=== PATIENT | male | born 1995 | race Asian ===

== ENCOUNTER 2019-02-23 10:18 | Emergency (ER) | payer OTHER ==
[2019-02-23] MEDS ORDERED: NS 0.9% 1000 ML** 1,000 ML IV ONE (10:27)
--- NOTE | 2019-02-23 10:39 | ED ---
Back Pain - HPI Summary HPI Summary: Pt is a 23 y/o M presenting to the ED with a chief complaint of right flank pain sudden onset around 0930 today while working on his laptop. The pain is described as sharp and constant for about 30-40 minutes, and it subsided when he got into the ambulance, currently rated at a 2-3/10. pt was given Toradol by EMS, 30mg. It slightly radiates to his RLQ and there was some pain in his testicles. Pt denies trauma , hematuria. No abx surgery hx. He had a scan last year that revealed a small kidney stone, and thinks that his father may have had kidney stones. He denies nausea as well as any medical hx. Medications reviewed this visit - History of Current Complaint Chief Complaint: EDFlankPain Stated Complaint: ABD PAIN PER EMS Time Seen by Provider: 02/23/19 10:24 Hx Obtained From: Patient Onset/Duration: Sudden Onset, Lasting Minutes - 30-40min, Still Present Onset/Duration: Started Hours Ago, Resolved Timing: Constant, Lasting Minutes Back Pain Location: Is Diffuse - R flank Severity Initially: Severe Severity Currently: Moderate Pain Intensity: 4 Pain Scale Used: 0-10 Numeric Character: Sharp Aggravating Symptom(s): Nothing Alleviating Symptom(s): Position Associated Signs And Symptoms: Positive: Abdominal Pain, Flank Pain, Other - testicular pain - Allergies/Home Medications Allergies/Adverse Reactions: Allergies Allergy/AdvReac Type Severity Reaction Status Date / Time Penicillins Allergy Rash Verified 02/23/19 10:25 PMH/Surg Hx/FS Hx/Imm Hx Previously Healthy: Yes Endocrine/Hematology History: Denies: Hx Diabetes Cardiovascular History: Denies: Hx Hypertension Infectious Disease History: No Infectious Disease History: Denies: Traveled Outside the [place] in Last 30 Days - Family History Known Family History: Positive: Other - father kidney stones - Social History Occupation: Student Lives: Dormitory/Roommates Alcohol Use: Occasionally Hx Substance Use: No Substance Use Type: Reports: None Hx Tobacco Use: No Smoking Status (MU): Never Smoked Tobacco Review of Systems Constitutional: Negative Eyes: Negative Positive: Abdominal Pain, Other - right flank. Negative: Nausea Positive: other - pain in testicles with back pain - resolved Positive: Myalgia - flank pain Skin: Negative All Other Systems Reviewed And Are Negative: Yes Physical Exam - Summary Physical Exam Summary: Vital Signs Reviewed: Yes A+Ox3, no distress Eyes: Conjunctiva Clear, ЕЛЕНА. EOM intact and full ENT: Hearing grossly normal TM x 2 clear, mmoist, uvula midline, no exudate, no erythema Neck: Positive: Supple Respiratory: Positive: No respiratory distress, No accessory muscle use + CTA throughout no w/r Cardiovascular: RRR nl s1, s2 no m/r CBT <2 sec abd soft + BS nt/nd no guarding, no distension, no cva Musculoskeletal Exam: WEAVER x 4 without difficulty Strength Intact, ROM Intact Neurological: Positive: Alert, + sensation throughout Psychological: Positive: Normal Response To Family Skin: Positive: no rash, no ecchymosis Triage Information Reviewed: Yes Vital Signs On Initial Exam: Initial Vitals Temp Pulse Resp BP Pulse Ox 97.8 F 89 18 117/71 99 02/23/19 10:24 02/23/19 10:24 02/23/19 10:24 02/23/19 10:24 02/23/19 10:24 Vital Signs Reviewed: Yes Diagnostics - Vital Signs Vital Signs Temp Pulse Resp BP Pulse Ox 02/23/19 10:24 97.8 F 89 18 117/71 99 - Laboratory Result Diagrams: 02/23/19 10:45 02/23/19 10:45 Lab Statement: Any lab studies that have been ordered have been reviewed, and results considered in the medical decision making process. - CT CT abd/pelv CT Interpretation Completed By: Radiologist Summary of CT Findings: Minimal RIGHT hydronephrosis is traced to a 0.3cm stone at the ureterovesicular junction. ED provider has reviewed this report. Re-Evaluation - Re-Evaluation 1st re-eval Re-Evaluation Time: 12:00 Change: Unchanged Comment: I discussed the results of the CT abd/pelv with the patient. Will discharge with Rx flomax. motrin/apap. hydrate. referral to [facility]. Pt has strainer and specimen cup Back Pain Course/Dx - Course Course Of Treatment: Patient presents to urgent care reporting right flank pain sudden onset approximately 45 minutes prior to arrival. Patient states pain was severe initially. Patient was given Toradol time pain has improved. Patient rates of 1-2 attempted patient without any nausea. Patient was told he had kidney stones in his kidneys over year ago but has never passed 1. Patient will have a urologist. On exam vital signs are stable. Patient comfortable in no distress. Will give IV fluid check kidney function and urinalysis. Will check CT scan. At this time patient declined any further analgesics. We'll monitor closely. Patient comfortable in agreement with plan. - Diagnoses Provider Diagnoses: Renal colic on right side Discharge - Sign-Out/Discharge Documenting (check all that apply): Patient Departure Patient Received Moderate/Deep Sedation with Procedure: No - Discharge Plan Condition: Stable Disposition: HOME Prescriptions: Tamsulosin HCl [Flomax] 0.4 mg PO QPM #7 cap Patient Education Materials: Renal Colic (ED) Referrals: [facility] [Outside] Murtaza Lantigua MD [Medical Doctor] - (Call to schedule a follow-up appointment ) Additional Instructions: - Stay well hydrated - drink plenty of non-alcoholic, non-caffinated beverages - Alternate ibuprofen (Advil, Motrin) 600mg and Tylenol (acetaminophen) 1000mg every 3hours for pain. Take with food. Do not take for more than 4-5 days - Take Flomax at bedtime - stop taking once you pass the kidney stone. - strain your urine - once you catch the stone - bring it to your follow-up appointment Contact the urologist to schedule a follow-up appointment - Billing Disposition and Condition Condition: STABLE Disposition: Home - Attestation Statements Document Initiated by Carissa: Yes Documenting Scribe: Jesica Noriega Provider For Whom Carissa is Documenting (Include Credential): Karolina Stanley MD. Scribe Attestation: Jesica Eldridge, scribed for Kraolina Stanley MD. on 02/23/19 at 1836. Scribe Documentation Reviewed: Yes Provider Attestation: The documentation as recorded by the Jesica marie accurately reflects the service I personally performed and the decisions made by me, Karolina Stanley MD. Status of Scribe Document: Viewed
[2019-02-23 10:52] LABS: ABS Lymphocytes 0.7 10^3/ul (1.0-4.8); ABS Monocytes 0.6 10^3/ul (0-0.8); ABS Neutrophils 6.9 10^3/ul (1.5-7.7); Eosinophil % 0.5 %; Hematocrit 46 % (42-52); Hemoglobin 15.8 g/dL (14.0-18.0); Lymphocyte % 8.2 %; Mean Corpuscular HGB Conc 34 g/dL (31-36); Mean Corpuscular Hemoglobin 30 pg (27-31); Mean Corpuscular Volume 88 fL (80-94); Mean Platelet Volume 8.5 fL (7.4-10.4); Platelet Count 205 10^3/uL (150-450); Red Blood Count 5.23 10^6 /uL (4.18-5.48); Red Cell Distribution Width 13 % (10.5-15); White Blood Count 8.2 10^3/uL (3.5-10.8)
[2019-02-23 11:33] LABS: Albumin 4.4 g/dL (3.2-5.2); BUN/Creatinine Ratio 15.8 (8-20); Calcium 9.6 mg/dL (8.6-10.3); EGFR African American 118.9 (>60); EGFR Non-African American 98.2 (>60); Globulin 2.2 g/dL (2-4); Potassium 3.8 mmol/L (3.5-5.0); Total Bilirubin 0.8 mg/dL (0.2-1.0); Total Protein 6.6 g/dL (6.4-8.9)
[2019-02-23 12:19] LABS: Urine Appearance Cloudy; Urine Bacteria Absent (Absent); Urine Bilirubin Negative (Negative); Urine Blood 2+ (Negative); Urine Color Yellow; Urine Glucose Negative (Negative); Urine Ketones Negative (Negative); Urine Nitrite Negative (Negative); Urine Protein Negative (Negative); Urine Red Blood Cell 3+(>10/hpf) (Absent); Urine Specific Gravity 1.013 (1.010-1.030); Urine Urobilinogen Negative (Negative); Urine White Blood Cell Trace(0-5/hpf) (Absent)
[2019-02-23 12:46] VITALS: BP 125/81
== END 2019-02-23 12:45 | disposition home or self-care (01) ==
LOC: ED 10:18
DX: N13.2 Hydronephrosis with renal and ureteral calculous obstruction (principal); N23 Unspecified renal colic; Z88.0 Allergy status to penicillin
CPT/HCPCS: 36415; 74176; 80053; 81003; 81015; 85025; 87086; 96360; 99282